=== PATIENT | male | born 1965 | race Caucasian/White ===

== ENCOUNTER 2017-05-01 15:44 | Emergency (ER) | payer SELFPAY ==
[~2017-05-01] VITALS: Ht 172.7 cm; Wt 79.4 kg
[2017-05-01] MEDS ORDERED: ATENOLOL25 MG ORAL (16:15)
[2017-05-01] MEDS ORDERED: PERCOCET 10-321 EACH ORAL (16:15)
[2017-05-01] MEDS ORDERED: IMITREX50 MG ORAL (16:15)
[2017-05-01] MEDS ORDERED: Morphine Sulfate 4mg/ml Inj IVP ONE (16:30)
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
[2017-05-01 17:22] LABS: BASOPHILS % (AUTO) 1.4 % (0.0-2.0); EOSINOPHILS % (AUTO) 5.4 % (0.0-3.0); HEMATOCRIT 42.9 % (42.0-52.0); HEMOGLOBIN 15.2 G/DL (14.2-18.0); LYMPHOCYTES % (AUTO) 30.7 % (20.0-45.0); MEAN CORPUSCULAR VOLUME 94 FL (80-99); MONOCYTES % (AUTO) 7.1 % (1.0-10.0); NEUTROPHILS % (AUTO) 55.4 % (45.0-75.0); PLATELET COUNT 230 K/UL (150-450); RED BLOOD COUNT 4.55 M/UL (4.70-6.10); RED CELL DISTRIBUTION WIDTH 11.6 % (11.6-14.8); WHITE BLOOD COUNT 8.5 K/UL (4.8-10.8)
[2017-05-01 17:25] LABS: APPEARANCE,URINE CLEAR; BILIRUBIN, URINE NEGATIVE (NEGATIVE); COLOR,URINE PALE YELLOW; GLUCOSE, URINE (UA) NEGATIVE (NEGATIVE); KETONES,URINE NEGATIVE (NEGATIVE); LEUKOCYTE ESTERASE ,URINE NEGATIVE (NEGATIVE); NITRITE,URINE NEGATIVE (NEGATIVE); PH,URINE 6 (4.5-8.0); PROTEIN,URINE NEGATIVE (NEGATIVE); UROBILINOGEN,URINE NORMAL MG/DL (0.0-1.0)
[2017-05-01 17:38] LABS: ANION GAP 7 mmol/L (5-15); BLOOD UREA NITROGEN 14 mg/dL (7-18); CALCIUM 8.8 MG/DL (8.5-10.1); CARBON DIOXIDE 29 MMOL/L (21-32); CHLORIDE 103 MMOL/L (98-107); POTASSIUM 4.1 MMOL/L (3.5-5.1); SODIUM 139 MMOL/L (136-145)
[2017-05-01 17:43] VITALS: BP 111/78
[2017-05-01 17:43] LABS: ALANINE AMINOTRANSFERASE 26 U/L (12-78); ALBUMIN/GLOBULIN RATIO 1.3 (1.0-2.7); ALKALINE PHOSPHATASE 50 U/L (46-116); ASPARTATE AMINO TRANSFERASE 14 U/L (15-37); BILIRUBIN,TOTAL 0.4 MG/DL (0.2-1.0)
[2017-05-01 19:40] VITALS: BP 128/80
[2017-05-01] MEDS ORDERED: Hydromorphone 0.5mg/0.5ml inj IVP ONE (20:00)
[2017-05-01] MEDS ORDERED: Ketorolac 30mg Inj IV ONE (20:00)
[2017-05-01] MEDS ORDERED: NORCO 5-325 TA1 EACH ORAL (20:37)
[2017-05-01] MEDS ORDERED: IBUPROFEN600 MG ORAL (20:37)
[2017-05-01 20:45] VITALS: BP 125/79
[2017-05-01 20:50] VITALS: BP 125/79
--- NOTE | 2017-05-02 13:36 | Diagnostic Imaging Report ---
Indication: Chest pain Technique: CT pulmonary angiogram performed utilizing automated exposure control with intravenous contrast. Axial, sagittal and coronal reconstructions were obtained. 3-D volumetric reconstructions were also performed. CT dose: Total DLP 2124.54 mGycm; CTDI vol 28.28,17.93 mGy Comparison: None Findings: There is no evidence of pulmonary embolism. No thoracic aortic aneurysm or dissection. There is common origin of the brachiocephalic and left common carotid arteries. Mild atherosclerotic calcifications noted in the aortic arch. Mild coronary arterial calcification seen. Abdominal aorta is normal in caliber. Visualized superior mesenteric, celiac and bilateral renal arteries are patent. Heart size within normal limits. No pericardial effusion. Thyroid is unremarkable in appearance. There is no pathologically enlarged hilar or mediastinal lymphadenopathy. Dependent atelectasis noted in the posterior lower lobes bilaterally. There is no focal airspace consolidation to suggest pneumonia. No pleural effusion. No pneumothorax. Minimal degenerative change noted in the thoracic spine. No acute osseous abnormality seen. IMPRESSION: No evidence of thoracic aortic aneurysm or dissection. No pulmonary embolism. Lungs are clear. No acute osseous abnormality. Additional findings as above. This corresponds with the statrad preliminary report. The CT scanner at [facility] is accredited by the [employer] and the scans are performed using protocols designed to limit radiation exposure to as low as reasonably achievable to attain images of sufficient resolution adequate for diagnostic evaluation.
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
== END 2017-05-01 20:50 | disposition home or self-care (01) ==
LOC: EMR 17:00
DX: R10.32 Left lower quadrant pain (principal); T14.8XXA Other injury of unspecified body region, initial encounter; V43.62XA Car passenger injured in collision with other type car in traffic accident, initial encounter; Y93.9 Activity, unspecified; Y92.410 Unspecified street and highway as the place of occurrence of the external cause; I10 Essential (primary) hypertension; K80.20 Calculus of gallbladder without cholecystitis without obstruction
CPT/HCPCS: 36415; 71275; 74177; 80053; 81003; 83690; 85025; 96374; 96375; 99284; J1170; J1885; J2270; J2405; Q9967